=== PATIENT | male | born 1985 | race Caucasian/White ===

== ENCOUNTER → 2021-05-20 09:18 | Outpatient (CLI) | payer OTHER, SELFPAY ==
--- NOTE | ~2021-05-20 | XR_ITS ---
EXAMINATION: XR_[id number]_CR DATE: 05/20/2021 09:43 INDICATION: Chronic neck pain. TECHNIQUE: 4 views of the cervical spine were obtained. COMPARISON: None. FINDINGS: There is 6 degrees dextrocurvature of cervical spine. Vertebral body heights and interverte bral disc heights are normal. The facet joints are unremarkable. No central canal stenosis or prevert ebral soft tissue swelling. IMPRESSION: 1. No etiology for the patient's symptoms. Reviewed, dictated and finalized at location A. L EXECUTIVE
== END ==
PROVIDERS: PCP Family Medicine; Visit Provider Family Medicine
DX: M54.2 Cervicalgia (principal); G89.29 Other chronic pain
CPT/HCPCS: 72040

== ENCOUNTER 2023-08-31 08:00 | Outpatient (CLI) | payer OTHER, SELFPAY ==
--- NOTE | ~2023-08-31 | XR_ITS ---
EXAMINATION: XR_[id number]_CR DATE: 08/31/2023 08:13 INDICATION: Hand tingling. TECHNIQUE: 4 views of cervical spine including standing views were obtained. COMPARISON: Cervical spine radiographs 05/20/2021 FINDINGS: There is 5 degrees dextrocurvature of cervical spine. Vertebral body heights and interverte bral disc heights are normal. The facet joints are normal. No central canal stenosis or prevertebral soft tissue swelling. IMPRESSION: 1. No etiology for the patient's symptoms. Reviewed, dictated and finalized at location E.
== END 2023-08-31 08:01 ==
PROVIDERS: PCP Family Medicine; Visit Provider Family Medicine
DX: R20.2 Paresthesia of skin (principal)
CPT/HCPCS: 72040